=== PATIENT | female | born 1950 | race Caucasian/White ===

== ENCOUNTER 2017-08-26 06:33 | Day surgery (SDC) | payer MEDICARE, BC ==
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
[~2017-08-26 06:33] MED LIST: Dexamethasone 4 MG/ML 5 ML MDV ONE; Ketorolac 30 MG/ML SDV ONE; Lactated Ringers 1,000 ML ONE; Lidocaine 1% 6 ML ONE; Midazolam 1 MG/ML 2 ML SDV ONE; Ondansetron 4 MG/2 ML SDV ONE; Propofol 200 MG/20 ML SDV ONE; ceFAZolin 1 GM Vial ONE; fentaNYL 250 MCG/5 ML SDV ONE
[2017-08-26] MEDS ORDERED: Sodium Chloride 0.9% 10 ML Syringe FLUSH PRN (07:00)
[2017-08-26] MEDS ORDERED: Lidocaine 1%/Sod Bicarbonate in NS 8.4% 1 ML Syringe IDERM PRN (07:00)
[2017-08-26] MEDS ORDERED: Lactated Ringers 1,000 ML IV SCH (07:00)
[2017-08-26] MEDS ORDERED: ePHEDrine 50 MG/ML SDV ONE (07:25)
[2017-08-26] MEDS ORDERED: Phenylephrine/Normal Saline 100 MCG/ML 10 ML Syringe ONE (07:26)
[2017-08-26] MEDS ORDERED: Ondansetron 4 MG/2 ML SDV IVPUSH PRN (07:31)
[2017-08-26] MEDS ORDERED: fentaNYL 100 MCG/2 ML SDV IVPUSH PRN (07:31)
[2017-08-26] MEDS ORDERED: HYDROmorphone 0.5 MG/0.5 ML Syringe IVPUSH PRN (07:31)
[2017-08-26] MEDS ORDERED: diphenhydrAMINE 50 MG/ML SDV IVPUSH PRN (07:31)
[2017-08-26] MEDS: Bupivacaine 0.25% 30 ML SDV ONE ×3 (08:05→08:08)
[2017-08-26] MEDS: Triamcinolone Acetonide 40 MG/ML 1 ML MDV ONE ×2 (08:07→08:08)
--- NOTE | 2017-08-26 08:22 | PCM.POSTAN ---
POST ANESTHESIA ASSESSMENT - MENTAL STATUS Mental Status: Alert - VITAL SIGNS Pulse Rate: 76 SaO2: 98 (2 lpm nasal cannula) Resp Rate: 8 Blood Pressure: 108/63 Temperature: 36.4 C - RESPIRATORY Respiratory Status: Respiratory Rate WNL, Airway Patent, O2 Saturation Stable, Supplemental Oxygen - CARDIOVASCULAR CV Status: Pulse Rate WNL, Blood Pressure Stable - GASTROINTESTINAL GI Status: No Symptoms - POST OP HYDRATION Hydration Status: Adequate & Stable
--- NOTE | 2017-08-26 09:01 | CR ---
Right knee: Two fluoroscopic spot views were obtained of the right knee utilizing C-arm device. Removal of 2 screws within the right patella is noted. Fluoroscopy time given as 15.5 seconds. Impression: 1. Removal of 2 screws within the right patella. Diagnostic code #1
--- NOTE | 2017-08-26 09:25 | PCM48HPAN ---
Post Anesthesia Note - EVALUATION WITHIN 48HRS OF ANESTHETIC Vital Signs in Normal Range: Yes Patient Participated in Evaluation: Yes Respiratory Function Stable: Yes Airway Patent: Yes Cardiovascular Function Stable: Yes Hydration Status Stable: Yes Pain Control Satisfactory: Yes Nausea and Vomiting Control Satisfactory: Yes Mental Status Recovered: Yes
[2017-08-26] MEDS ORDERED: Acetaminophen/HYDROcodone 325-5 MG Tab PO ONE (09:41)
--- NOTE | 2017-09-03 07:32 | PCM.OPNOTE ---
- General Post-Op/Procedure Note Date of Surgery/Procedure: 08/26/17 Operative Procedure(s): right knee deep hardware removal with bilateral knee corticosteroid injections Pre Op Diagnosis: right knee painful hardware with bilateral knee osteoarthrosis Post-Op Diagnosis: Same Anesthesia Technique: General LMA, Local Primary Surgeon: Ky Barrera Anesthesia Provider: Darlene Barrientos Fresh Food Manager: Dora Ruiz in mLs: 5 Complications: None Condition: Good
--- NOTE | 2017-09-03 07:57 | OR ---
DATE OF OPERATION: 08/26/2017 SURGEON: Ky Barrera MD OPERATION PERFORMED: Right knee deep hardware removal with bilateral knee corticosteroid injections. PREOPERATIVE DIAGNOSIS: Right knee painful hardware with bilateral knee osteoarthrosis. POSTOPERATIVE DIAGNOSIS: Right knee painful hardware with bilateral knee osteoarthrosis. ANESTHESIA: General LMA with local. ANESTHESIA PROVIDER: Darlene Barrientos CRNA. INTENSIVE CARE NURSE: Dora Ruiz PA-C. ESTIMATED BLOOD LOSS: Less than 5 mL. COMPLICATIONS: None. CONDITION: Stable. DESCRIPTION OF PROCEDURE: The patient was identified in the preop holding area. Proper site was marked and identified by the surgeon. The patient was taken back to the operating theater, where after adequate anesthesia, the patient had a nonsterile tourniquet applied to the right lower extremity. At this time, right lower extremity was then sterilely prepped and draped in usual sterile fashion. OR time-out was performed. The patient received 2 g IV Ancef. At this time, the right lower extremity was exsanguinated. Tourniquet was insufflated to 250 mmHg. Utilizing C-arm fluoroscopy, both screws were identified and small poke hole incisions were made. Blunt dissection was taken down to the screws on the lateral side of the patella and the proper screw head was utilized and both of these screws were then removed. At this time, a curette was used to curette up out both screw holes and adequate saline was irrigated through both wounds. At this time, the patient had simple nylon stitches placed in the focal incisions. Under sterile technique, 2 mL of 40 mg Kenalog and 4 mL of 0.25% Marcaine were injected to the right knee, and after sterile dressing was applied, the left knee also had 2 mL of 40 mg Kenalog and 4 mL of 0.25% Marcaine injected to it as well. The patient, at this time, tolerated the procedure well and was sent to PACU in stable condition. MMODAL /[id number]
== END 2017-08-26 10:15 | disposition home or self-care (01) ==
LOC: JD.SDS 06:33
PROVIDERS: ATTEND Orthopaedic Surgery
DX: T84.84XA Pain due to internal orthopedic prosthetic devices, implants and grafts, initial encounter (principal); M17.0 Bilateral primary osteoarthritis of knee; I10 Essential (primary) hypertension; K21.9 Gastro-esophageal reflux disease without esophagitis; Z87.891 Personal history of nicotine dependence; Z79.899 Other long term (current) drug therapy
CPT/HCPCS: 20610; 20680; 76000; 87641; 93005; A9270; J0690; J1100; J1885; J2001; J2250; J2405; J3010; J3301; J3490; J7120; 01360; J2704

== ENCOUNTER 2018-01-18 07:08 | Day surgery (SDC) | payer MEDICARE, BC ==
[~2018-01-18 07:08] MED LIST changes: +Acetaminophen 325 MG Tab PO SCH; +Bisacodyl 5 MG Tab PO PRN; +Cyclobenzaprine 10 MG Tab PO PRN; -Dexamethasone 4 MG/ML 5 ML MDV ONE; -Ketorolac 30 MG/ML SDV ONE; +Lactated Ringers 1,000 ML IV SCH; -Lactated Ringers 1,000 ML ONE; -Lidocaine 1% 6 ML ONE; +Lidocaine 1%/Sod Bicarbonate in NS 8.4% 1 ML Syringe IDERM PRN; +Magnesium Hydroxide 400 MG/5 ML Susp 30 ML Cup PO PRN; +Morphine 2 MG/ML Syringe IVPUSH PRN; +Naloxone 0.4 MG/ML SDV IVPUSH PRN; +Ondansetron 4 MG/2 ML SDV IVPUSH PRN; +Pregabalin 25 MG Cap PO SCH; +Sennosides 8.6 MG Tab PO PRN; +Sodium Chloride 0.9% 10 ML Syringe FLUSH PRN; +fentaNYL 100 MCG/2 ML SDV ONE; -fentaNYL 250 MCG/5 ML SDV ONE; +oxyCODONE ER 10 MG TAB.ER PO SCH
[2018-01-18] MEDS ORDERED: ceFAZolin 1 GM Vial ONE (07:17)
[2018-01-18] MEDS ORDERED: Iodine/Sodium Iodide 2% Tincture 30 ML Bottle ONE (07:17)
[2018-01-18] MEDS ORDERED: Vancomycin 1 GM SDV ONE (07:26)
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
[2018-01-18] MEDS ORDERED: Ropivacaine 0.5% 5 MG/ML 30 ML SDV ONE (07:57)
[2018-01-18] MEDS ORDERED: Ketamine 500 mg/10 ML MDV ONE (08:12)
[2018-01-18] MEDS ORDERED: Metoclopramide 10 MG/2 ML SDV ONE (08:14)
[2018-01-18] MEDS ORDERED: Bupivacaine 0.75% 30 ML SDV ONE (08:14)
[2018-01-18] MEDS ORDERED: Dexamethasone 4 MG/ML 5 ML MDV ONE (08:24)
[2018-01-18] MEDS ORDERED: Lactated Ringers 1,000 ML ONE ×2 (08:54)
[2018-01-18] MEDS ORDERED: Phenylephrine/Normal Saline 100 MCG/ML 10 ML Syringe ONE (09:02)
[2018-01-18] MEDS ORDERED: diphenhydrAMINE 50 MG/ML SDV IVPUSH PRN (09:07)
[2018-01-18] MEDS ORDERED: Ondansetron 4 MG/2 ML SDV IVPUSH PRN (09:07)
[2018-01-18] MEDS ORDERED: fentaNYL 100 MCG/2 ML SDV IVPUSH PRN (09:07)
[2018-01-18] MEDS ORDERED: HYDROmorphone 0.5 MG/0.5 ML Syringe IVPUSH PRN (09:07)
[2018-01-18] MEDS ORDERED: Ketorolac 30 MG/ML SDV ONE (09:13)
[2018-01-18] MEDS: Morphine 8 MG, EPINEPHrine 0.3 MG, Cefuroxime 750 MG, Ketorolac 30 MG, Sodium Chloride ... ONE ×15 (09:17→12:09)
[2018-01-18] MEDS: Bupivacaine 0.25% 30 ML SDV ONE ×2 (09:17→09:20)
[2018-01-18] MEDS: Vancomycin 1 GM SDV ONE ×2 (09:18→09:23)
[2018-01-18] MEDS ORDERED: Famotidine 20 MG Tab PO SCH (10:00)
--- NOTE | 2018-01-18 10:03 | PCM.POSTAN ---
POST ANESTHESIA ASSESSMENT - MENTAL STATUS Mental Status: Alert, Oriented - VITAL SIGNS Pulse Rate: 75 SaO2: 92 Resp Rate: 9 Blood Pressure: 98/57 Temperature: 36.6 C - RESPIRATORY Respiratory Status: Respiratory Rate WNL, Airway Patent, O2 Saturation Stable - CARDIOVASCULAR CV Status: Pulse Rate WNL - GASTROINTESTINAL GI Status: No Symptoms - PAIN Pain Score: 0 - POST OP HYDRATION Hydration Status: Adequate & Stable
--- NOTE | 2018-01-18 11:34 | CR ---
Right knee: AP and lateral views of the right knee were obtained. Comparison: Previous right knee study of 05/02/14. Knee prosthesis is noted. Components are aligned. Soft tissue air is noted from the surgical procedure. Underlying bony structures are intact. Impression: 1. Satisfactory postop radiographic appearance of recently placed right knee prosthesis. Diagnostic code #2
[2018-01-18] MEDS: Famotidine 20 MG Tab PO SCH ×2 (12:08→18:07)
[2018-01-18] MEDS: Acetaminophen/oxyCODONE 325-5 MG Tab PO PRN ×3 (12:22→21:21)
[2018-01-18] MEDS: ceFAZolin 2 GM in Premix Bag 1 BAG IV SCH ×2 (15:09→23:32)
--- NOTE | 2018-01-18 16:11 | PCM.SN ---
- Free Text/Narrative Note: In to see Sonya. Overall she is doing well s/p R TKA day 0. She currently states her pain is controlled, currently rates it 09/10. Denies F/C, Headache, N/ V/D, Chest pain, SOB, Cough. Working with Physical Therapy. Urinating. Using Incentive Spirometry. No Mims. No supplemental O2. DVT prophylaxis. Physical Exam unremarkable- PERRLA, Lungs Clear, Normal Heart sounds, Neurovascularly intact in extremities with 3+ pulses. No other concerns from nursing.
[2018-01-18] MEDS ORDERED: Zolpidem 5 MG Tab PO PRN (21:00)
[2018-01-18] MEDS: BRIMONIDINE EYEBOTH SCH (21:14)
[2018-01-18] MEDS: TIMOLOL EYEBOTH SCH (21:14)
[2018-01-18] MEDS: Ketorolac 15 MG/ML SDV IVPUSH PRN (21:21)
[2018-01-18] MEDS: Docusate Sodium 100 MG Cap PO SCH (21:22)
[2018-01-19] MEDS: Acetaminophen/oxyCODONE 325-5 MG Tab PO PRN ×2 (04:55→08:49)
[2018-01-19] MEDS: Famotidine 20 MG Tab PO SCH (06:30)
[2018-01-19] MEDS: ceFAZolin 2 GM in Premix Bag 1 BAG IV SCH (06:30)
--- NOTE | 2018-01-19 08:35 | PCM.SN ---
- Free Text/Narrative Note: In to see Sonya. She is S/P right TKA, post-op day 1. She is doing well. She denies any chest pain, palpitations, SOB, Nausea, Vomiting, Diarrhea, or abdominal pain. She has been up ambulating and working with therapies. She has urinated. Labs and vital signs today look good. Hgb is 12.1 (15.4 pre-operative ) and eGFR is >60 (93 pre-operative). Pain is controlled. She has been weaned off oxygen and utilizing her IS. No nursing or patient concerns. Physical exam is unremarkable with no abdominal pain, clear lung sounds, and normal rate/ rhythm. Pulses are 2+ bilaterally on upper and lower extremities with no neurological deficits. From a hospitalist standpoint she is cleared for discharge pending primary team and PT/OT agreement.
[2018-01-19] MEDS: Ketorolac 15 MG/ML SDV IVPUSH PRN (08:43)
[2018-01-19] MEDS: Docusate Sodium 100 MG Cap PO SCH (08:46)
[2018-01-19] MEDS ORDERED: DULoxetine 30 MG Cap PO SCH (09:00)
[2018-01-19] MEDS ORDERED: Aspirin 325 MG Tab.EC PO SCH (09:00)
[2018-01-19] MEDS ORDERED: Magnesium Oxide 400 MG Tab PO SCH (09:00)
[2018-01-19] MEDS ORDERED: Lisinopril 10 MG Tab PO SCH (09:00)
[2018-01-19] MEDS ORDERED: Hydrochlorothiazide 12.5 MG Cap PO SCH (09:00)
[2018-01-19] MEDS ORDERED: Multivitamins,Therapeutic Tab PO SCH (09:00)
--- NOTE | 2018-01-19 09:32 | PCM.SURGPN ---
- General Info Date of Service: 01/19/18 POD#: 1 Functional Status: Reports: Pain Controlled, Tolerating Diet, Ambulating, Urinating, Incentive Spirometry, Other (The pt states she is doing well.) - Patient Data Vitals - Most Recent: Last Vital Signs Temp 97.7 F 01/19/18 08:50 Pulse 76 01/19/18 08:50 Resp 16 01/19/18 08:50 BP 112/65 01/19/18 08:50 Pulse Ox 96 01/19/18 08:50 Weight - Most Recent: 178 lb I&O - Last 24 Hours: Intake & Output 01/18/18 01/19/18 01/19/18 22:59 06:59 14:59 Intake Total 1250 1050 Output Total 600 425 Balance 650 625 Lab Results Last 24 Hrs: Laboratory Results - last 24 hr 01/19/18 01/19/18 Range/Units 05:20 05:20 WBC 13.17 H (3.98-10.04) K/mm3 RBC 3.95 L (3.98-5.22) M/mm3 Hgb 12.1 (11.2-15.7) gm/L Hct 35.5 (34.1-44.9) % MCV 89.9 (79.4-94.8) fl MCH 30.6 (25.6-32.2) pg MCHC 34.1 (32.2-35.5) g/dl RDW Std Deviation 41.0 (36.4-46.3) fL Plt Count 280 (182-369) K/mm3 MPV 9.3 L (9.4-12.3) fl Sodium 141 (136-145) mEq/L Potassium 4.1 (3.5-5.1) mEq/L Chloride 106 (98-107) mEq/L Carbon Dioxide 27 (21-32) mEq/L Anion Gap 12.1 (5-15) BUN 10 (7-18) mg/dL Creatinine 0.8 (0.55-1.02) mg/dL Est Cr Clr Drug Dosing 56.45 mL/min Estimated GFR (MDRD) > 60 (>60) mL/min BUN/Creatinine Ratio 12.5 L (14-18) Glucose 114 (80-115) mg/dL Calcium 9.1 (8.5-10.1) mg/dL Total Bilirubin 0.4 (0.2-1.0) mg/dL AST 24 (15-37) U/L ALT 26 (14-59) U/L Alkaline Phosphatase 58 (46-116) U/L Total Protein 6.4 (6.4-8.2) g/dl Albumin 3.2 L (3.4-5.0) g/dl Globulin 3.2 gm/dL Albumin/Globulin Ratio 1.0 (1-2) Med Orders - Current: Current Medications Aspirin (Ecotrin) 325 mg PO BID [facility] Last Admin: 01/19/18 08:46 Dose: 325 mg Bisacodyl (Dulcolax) 5 mg PO DAILY PRN PRN Reason: Constipation Cyclobenzaprine HCl (Flexeril) 10 mg PO TID PRN PRN Reason: Spasms Last Admin: 01/19/18 08:46 Dose: 10 mg Docusate Sodium (Colace) 100 mg PO BID [facility] Last Admin: 01/19/18 08:46 Dose: 100 mg Duloxetine HCl (Cymbalta) 60 mg PO DAILY [facility] Last Admin: 01/19/18 08:46 Dose: 60 mg Famotidine (Pepcid) 20 mg PO Q12H [facility] Last Admin: 01/19/18 06:30 Dose: 20 mg Hydrochlorothiazide (Hydrochlorothiazide) 12.5 mg PO DAILY [facility] Last Admin: 01/19/18 08:46 Dose: 12.5 mg Ketorolac Tromethamine (Toradol) 15 mg IVPUSH Q6H PRN PRN Reason: Pain Last Admin: 01/19/18 08:43 Dose: 15 mg Lisinopril (Prinivil) 10 mg PO DAILY [facility] Last Admin: 01/19/18 08:46 Dose: 10 mg Magnesium Hydroxide (Milk Of Magnesia) 30 ml PO BID PRN PRN Reason: Constipation Magnesium Oxide (Magnesium Oxide) 400 mg PO DAILY [facility] Last Admin: 01/19/18 08:46 Dose: 400 mg Morphine Sulfate (Morphine) 2 mg IVPUSH Q2H PRN PRN Reason: Breakthrough Pain Multivitamins (Thera) 1 each PO DAILY [facility] Last Admin: 01/19/18 08:46 Dose: 1 each Naloxone HCl (Narcan) 0.1 mg IVPUSH Q5M PRN PRN Reason: Oversedation Ondansetron HCl (Zofran) 4 mg IVPUSH Q6H PRN PRN Reason: Nausea/Vomiting Oxycodone/Acetaminophen (Percocet 325-5 Mg) 1 - 2 tab PO Q4H PRN PRN Reason: Pain Last Admin: 01/19/18 08:49 Dose: 2 tab Brimonidine/Timolol (Ophth. Solution) 0 each EYEBOTH BID [facility] Last Admin: 01/18/18 21:14 Dose: Not Given Senna (Senna) 8.6 mg PO BID PRN PRN Reason: Constipation Zolpidem Tartrate (Ambien) 5 mg PO BEDTIME PRN PRN Reason: Insomnia Last Admin: 01/18/18 23:32 Dose: 5 mg Discontinued Medications Acetaminophen (Tylenol) 975 mg PO ONETIME [facility] Stop: 01/18/18 14:00 Last Admin: 01/18/18 07:23 Dose: 975 mg Bupivacaine HCl (Marcaine 0.25%) Confirm Administered Dose 30 ml .ROUTE .STK- MED ONE Stop: 01/18/18 07:18 Last Admin: 01/18/18 09:20 Dose: 30 ml Bupivacaine HCl (Sensorcaine-Mpf 0.75%) Confirm Administered Dose 30 ml .ROUTE .STK-MED ONE Stop: 01/18/18 08:15 Cefazolin Sodium (Ancef) Confirm Administered Dose 2 gm .ROUTE .STK-MED ONE Stop: 01/18/18 06:56 Cefazolin Sodium (Ancef) Confirm Administered Dose 2 gm .ROUTE .STK-MED ONE Stop: 01/18/18 07:18 Last Admin: 01/18/18 09:16 Dose: 2 gm Morphine Sulfate 8 mg/Epinephrine HCl 0.3 mg/Cefuroxime Sodium 750 mg/Ketorolac Tromethamine 30 mg/Sodium Chloride 27.9 ml 0 mg .XX ONETIME ONE Stop: 01/18/18 08:41 Last Admin: 01/18/18 12:09 Dose: Not Given Dexamethasone (Dexamethasone) Confirm Administered Dose 20 mg .ROUTE .STK-MED ONE Stop: 01/18/18 08:25 Diphenhydramine HCl (Benadryl) 25 mg IVPUSH Q6H PRN PRN Reason: Pruritis Stop: 01/18/18 12:00 Famotidine (Pepcid) 20 mg PO ASDIRECTED [facility] Fentanyl (Sublimaze) Confirm Administered Dose 100 mcg .ROUTE .STK-MED ONE Stop: 01/18/18 06:56 Fentanyl (Sublimaze) 50 mcg IVPUSH Q5M PRN PRN Reason: Pain Stop: 01/18/18 12:00 Hydromorphone HCl (Dilaudid) 0.5 mg IVPUSH ASDIRECTED PRN PRN Reason: Severe Pain Stop: 01/18/18 12:00 Lactated Ringer's (Ringers, Lactated) 1,000 mls @ 125 mls/hr IV ASDIRECTED [facility] Stop: 01/18/18 23:00 Last Admin: 01/18/18 07:30 Dose: 125 mls/hr Cefazolin Sodium/Dextrose 2 gm (/ Premix) 50 mls @ 100 mls/hr IV Q8H [facility] Stop: 01/19/18 07:44 Last Admin: 01/19/18 06:30 Dose: 100 mls/hr Lidocaine HCl (Xylocaine-Mpf 1%) Confirm Administered Dose 5 mls @ as directed .ROUTE .STK-MED ONE Stop: 01/18/18 08:15 Lactated Ringer's (Ringers, Lactated) Confirm Administered Dose 1,000 mls @ as directed .ROUTE .STK-MED ONE Stop: 01/18/18 08:55 Lactated Ringer's (Ringers, Lactated) Confirm Administered Dose 1,000 mls @ as directed .ROUTE .STK-MED ONE Stop: 01/18/18 08:55 Iodine (Iodine 2% Mild Tincture) Confirm Administered Dose 30 ml .ROUTE .STK- MED ONE Stop: 01/18/18 07:18 Last Admin: 01/18/18 09:14 Dose: 18 ml Ketamine HCl (Ketalar) Confirm Administered Dose 500 mg .ROUTE .STK-MED ONE Stop: 01/18/18 08:13 Ketorolac Tromethamine (Toradol) Confirm Administered Dose 30 mg .ROUTE .STK- MED ONE Stop: 01/18/18 09:14 Lidocaine/Sodium Bicarbonate (Buffered Lidocaine 1% In Ns 8.4%) 0.25 ml IDERM ONETIME PRN PRN Reason: Prior to IV Start Stop: 01/18/18 18:00 Last Admin: 01/18/18 07:30 Dose: 0.25 ml Metoclopramide HCl (Reglan) Confirm Administered Dose 10 mg .ROUTE .STK-MED ONE Stop: 01/18/18 08:15 Midazolam HCl (Versed 1 Mg/Ml) Confirm Administered Dose 2 mg .ROUTE .STK-MED ONE Stop: 01/18/18 06:57 Ondansetron HCl (Zofran) Confirm Administered Dose 4 mg .ROUTE .STK-MED ONE Stop: 01/18/18 06:56 Ondansetron HCl (Zofran) 4 mg IVPUSH ONETIME PRN PRN Reason: Nausea/Vomiting Stop: 01/18/18 12:00 Oxycodone HCl (Oxycontin) 10 mg PO ONETIME [facility] Stop: 01/18/18 14:00 Last Admin: 01/18/18 07:23 Dose: 10 mg Phenylephrine HCl (Phenylephrine In Ns 100 Mcg/Ml) Confirm Administered Dose 1 mg .ROUTE .STK-MED ONE Stop: 01/18/18 09:03 Pregabalin (Lyrica) 50 mg PO ONETIME [facility] Stop: 01/18/18 18:00 Last Admin: 01/18/18 07:23 Dose: 50 mg Propofol (Diprivan 20 Ml) Confirm Administered Dose 600 mg .ROUTE .STK-MED ONE Stop: 01/18/18 06:56 Ropivacaine (Naropin 0.5%) Confirm Administered Dose 30 ml .ROUTE .STK-MED ONE Stop: 01/18/18 07:58 Sodium Chloride (Saline Flush) 10 ml FLUSH ASDIRECTED PRN PRN Reason: Keep Vein Open Stop: 01/18/18 18:00 Tranexamic Acid (Cyklokapron) Confirm Administered Dose 1,000 mg .ROUTE .STK- MED ONE Stop: 01/18/18 07:18 Last Admin: 01/18/18 09:27 Dose: 1,000 mg Vancomycin HCl (Vancomycin) Confirm Administered Dose 1 gm .ROUTE .STK-MED ONE Stop: 01/18/18 07:18 Last Admin: 01/18/18 09:23 Dose: 1 gm Vancomycin HCl (Vancomycin) Confirm Administered Dose 1 gm .ROUTE .STK-MED ONE Stop: 01/18/18 07:27 - Exam Wound/Incisions: Dressing Dry and Intact General: Alert, Cooperative, No Acute Distress Lungs: Normal Respiratory Effort Extremities: Other (NVS intact for BLE. Marivel's negative. ) - Problem List Review Problem List Initiated/Reviewed/Updated: Yes - My Orders Last 24 Hours: Active Orders 24 hr Category Date Time Status Communication Order [RC] ROUTINE Care 01/18/18 09:07 Inactive Cooling Warming Measures [RC] ASDIRECTED Care 01/18/18 09:06 Inactive Notify Provider [RC] ASDIRECTED Care 01/18/18 09:07 Active Oxygen Therapy [RC] ASDIRECTED Care 01/18/18 09:06 Inactive Pulse Oximetry [RC] ASDIRECTED Care 01/18/18 09:06 Inactive Regular Diet [DIET] Diet 01/18/18 Lunch Active Aspirin [Ecotrin] Med 01/19/18 09:00 Active 325 mg PO BID DULoxetine [Cymbalta] Med 01/19/18 09:00 Active 60 mg PO DAILY Docusate Sodium [Colace] Med 01/18/18 21:00 Active 100 mg PO BID Lisinopril [Prinivil] Med 01/19/18 09:00 Active 10 mg PO DAILY Magnesium Oxide Med 01/19/18 09:00 Active 400 mg PO DAILY Multivitamins,Therapeutic [Thera] Med 01/19/18 09:00 Active 1 each PO DAILY Patient's Own Medication [Ptom] Med 01/18/18 21:00 Active 0 each EYEBOTH BID Zolpidem [Ambien] Med 01/18/18 21:00 Active 5 mg PO BEDTIME PRN hydroCHLOROthiazide Med 01/19/18 09:00 Active 12.5 mg PO DAILY Medication Orders Aspirin (Ecotrin) 325 mg PO BID [facility] Last Admin: 01/19/18 08:46 Dose: 325 mg Bisacodyl (Dulcolax) 5 mg PO DAILY PRN PRN Reason: Constipation Cyclobenzaprine HCl (Flexeril) 10 mg PO TID PRN PRN Reason: Spasms Last Admin: 01/19/18 08:46 Dose: 10 mg Docusate Sodium (Colace) 100 mg PO BID [facility] Last Admin: 01/19/18 08:46 Dose: 100 mg Admin: 01/18/18 21:22 Dose: 100 mg Duloxetine HCl (Cymbalta) 60 mg PO DAILY [facility] Last Admin: 01/19/18 08:46 Dose: 60 mg Famotidine (Pepcid) 20 mg PO Q12H [facility] Last Admin: 01/19/18 06:30 Dose: 20 mg Admin: 01/18/18 18:07 Dose: 20 mg Admin: 01/18/18 12:08 Dose: Hydrochlorothiazide (Hydrochlorothiazide) 12.5 mg PO DAILY [facility] Last Admin: 01/19/18 08:46 Dose: 12.5 mg Ketorolac Tromethamine (Toradol) 15 mg IVPUSH Q6H PRN PRN Reason: Pain Last Admin: 01/19/18 08:43 Dose: 15 mg Admin: 01/18/18 21:21 Dose: 15 mg Lisinopril (Prinivil) 10 mg PO DAILY [facility] Last Admin: 01/19/18 08:46 Dose: 10 mg Magnesium Hydroxide (Milk Of Magnesia) 30 ml PO BID PRN PRN Reason: Constipation Magnesium Oxide (Magnesium Oxide) 400 mg PO DAILY [facility] Last Admin: 01/19/18 08:46 Dose: 400 mg Morphine Sulfate (Morphine) 2 mg IVPUSH Q2H PRN PRN Reason: Breakthrough Pain Multivitamins (Thera) 1 each PO DAILY [facility] Last Admin: 01/19/18 08:46 Dose: 1 each Naloxone HCl (Narcan) 0.1 mg IVPUSH Q5M PRN PRN Reason: Oversedation Ondansetron HCl (Zofran) 4 mg IVPUSH Q6H PRN PRN Reason: Nausea/Vomiting Oxycodone/Acetaminophen (Percocet 325-5 Mg) 1 - 2 tab PO Q4H PRN PRN Reason: Pain Last Admin: 01/19/18 08:49 Dose: 2 tab Admin: 01/19/18 04:55 Dose: 2 tab Admin: 01/18/18 21:21 Dose: 2 tab Admin: 01/18/18 17:07 Dose: 2 tab Admin: 01/18/18 12:22 Dose: 1 tab Brimonidine/Timolol (Ophth. Solution) 0 each EYEBOTH BID [facility] Last Admin: 01/18/18 21:14 Dose: Senna (Senna) 8.6 mg PO BID PRN PRN Reason: Constipation Zolpidem Tartrate (Ambien) 5 mg PO BEDTIME PRN PRN Reason: Insomnia Last Admin: 01/18/18 23:32 Dose: 5 mg - Assessment Assessment (Free Text/Narrative):: POD#1 - right TKA - Plan Plan (Free Text/Narrative):: 1. Hgb 12.1. 2. ASA 325mg PO BID, frequent mobility, SCDs. 3. Discussed rx for osteoporosis. 4. Outpatient P.T. The pt's case was discussed with Dr. Barrera.
[2018-01-19] MEDS: TIMOLOL EYEBOTH SCH (10:52)
[2018-01-19] MEDS: BRIMONIDINE EYEBOTH SCH (10:52)
--- NOTE | 2018-01-25 11:37 | PCM.SN ---
- Free Text/Narrative Note: Right selective femoral nerve block at the adductor canal for post-procedure pain control under US guidance requested by Dr. Barrera. Time Out: 1012 Start: 1016 End: 1020 Chart reviewed. Consent signed. Questions answered. Appropriate monitors applied. Time out performed. Right mid-shaft femur identified with ultrasound, scanning medially of femur, the femoral artery in the adductor canal visualized , and the femoral nerve located laterally to the artery. The skin was prepped lateral to the ultrasound probe with chlorahexadine times two. The 21ga 4 insulated block needle was inserted under direct ultrasound guidance into the adductor canal. 20mL of 0.5% ropivacaine with 1:200,000 epinephrine was injected circumferentially around the nerve with intermittent negative aspiration noted. Patient tolerated the procedure well. Sterile technique noted along with sterile gloves, mask, and sterile probe cover. See picture on progress note and vital signs on nurses notes. Block completed in PACU. Assisted by Dr. Fredis Arreola CRNA
--- NOTE | 2018-01-28 13:59 | PCM.OPNOTE ---
- General Post-Op/Procedure Note Date of Surgery/Procedure: 01/18/18 Operative Procedure(s): right total knee arthroplasty Pre Op Diagnosis: right knee osteoarthrosis Post-Op Diagnosis: Same Anesthesia Technique: Local, MAC, Spinal Primary Surgeon: Ky Barrera Anesthesia Provider: Wilda Currie Granite Setter: Dora Ruiz Granite Setter: Renea Low in mLs: 3 Complications: None Condition: Good
--- NOTE | 2018-01-28 14:18 | OR ---
DATE OF OPERATION: 01/18/2018 SURGEON: Ky Barrera MD OPERATION PERFORMED: Right total knee arthroplasty. PREOPERATIVE DIAGNOSIS: Right knee osteoarthrosis. POSTOPERATIVE DIAGNOSIS: Right knee osteoarthrosis. ANESTHESIA: Local MAC with spinal. ANESTHESIA PROVIDER: Franny Austin. SUPERVISOR ADVICE: Dora Ruiz PA-C, and Renea Low LPN. ESTIMATED BLOOD LOSS: 3 mL COMPLICATIONS: None. CONDITION: Stable. IMPLANTS: 1. Sterling size 4 cemented PS femur. 2. Gabriela size 4 cemented universal tibial base plate. 3. Sterling size 4 9 mm PS X3 polyethylene. 4. Sterling size 35 x 10 mm cemented patella. DESCRIPTION OF PROCEDURE: The patient was identified in the preop holding area. Proper site was marked and identified by the surgeon. The patient was taken back to the operating theater. After adequate anesthesia, the patient's right lower extremity had a nonsterile tourniquet applied and it was then sterilely prepped and draped in the usual sterile fashion. OR timeout was performed. The patient received 2 g IV Ancef. At this time, right lower extremity was exsanguinated. Tourniquet was insufflated to 300 mmHg. Standard medial parapatellar incision was made. Medial parapatellar arthrotomy was created. Deep fibers of the MCL were raised and anterior fat pad was resected. At this time, attention was turned to the patella. Patella measured 23, it was resected to a 13 for a 35 x 10 mm patella. Drill holes were then drilled and found to be in adequate position. The drill was then drilled in the distal femur and the intramedullary distal femoral cutting guide was then placed. 8 mm was resected off the distal femur and was found to be an adequate resection. Sizing guide was placed. It was found to be a size 4 femur that was shown on the implant record at the beginning of this dictation. The drill holes were drilled for the epicondylar axis using Whitesides line and epicondyles as reference. At this time, the 4-in-1 cutting block was placed. An anterior posterior and anterior and posterior chamfer cuts were then completed. The correct size box cut was then placed and the box cut was completed and found to be an adequate resection. Attention was turned to the tibia. The posterior medial lateral retractors were placed. The extramedullary tibial guide was placed. It was placed in the old footprint of the ACL. It was aligned with the center of the ankle and 0 degrees of slope, 9 mm was then resected off the unaffected lateral side. There was found to be an acceptable reduction. At this time, posterior osteophytes were removed along with medial and lateral meniscus. A trial implant was placed with a correct sized tibia that was mentioned at the beginning of the dictation. A Gabriela size 4 9 mm PS X3 polyethylene was then placed. The patient's knee was brought through range of motion. The patella was tracking centrally and was stable to varus and valgus stress. Alignment was found to be roughly at 0 degrees. At this time, cement was mixed on the back table. The tibia was stamped and drilled in proper rotation. All cut surfaces were irrigated with pulse lavage irrigation with Ancef and then completely dried. Once this was completed, then the cement was ready. The universal tibial base plate was cemented in place. Next, the Gabriela size 4 cemented PS femur cemented into place and the Gabriela size 4 9 mm PS X3 polyethylene was placed. The patient's knee was brought into full extension. Excess cement was removed. The patella was then cemented in place at this time. Tourniquet was deflated. One liter dilute Betadine solution was irrigated through the knee along with 3 L of pulse lavage irrigation with Ancef. Periarticular injection was then completed. The patient's knee was brought through a range of motion. Once the cement had time to set up and it was found to be stable to varus valgus stress, the patella was tracking centrally with full range of motion. At this time, a #2 barbed suture was used for closure of the medial parapatellar arthrotomy. Topical tranexamic acid was placed. 2-0 Vicryl was used subcutaneously, a running 3-0 Monocryl was used subcuticularly. The patient tolerated the procedure well and was sent to the PACU in stable condition. GUERITA /[id number]
== END 2018-01-19 12:20 | disposition home or self-care (01) ==
LOC: JD.SDS 07:08 → JD.MS 07:11 → JD.SDS 01-19 12:20
PROVIDERS: ATTEND Orthopaedic Surgery
DX: M17.11 Unilateral primary osteoarthritis, right knee (principal); G47.30 Sleep apnea, unspecified; Z79.899 Other long term (current) drug therapy; Z87.891 Personal history of nicotine dependence
CPT/HCPCS: 27447; 36415; 73560; 80053; 85027; 87641; 97110; 97116; 97161; 97165; 97535; A9270; C1713; C1776; J0171; J0690; J0697; J1100; J1885; J2250; J2270; J2370; J2405; J2704; J2765; J2795; J3010; J3370; J3490; J7120; 01402; 64450